=== PATIENT | male | born 1960 | race Caucasian/White ===

== ENCOUNTER → 2022-08-26 | Day surgery (SDC) | payer MEDICARE, MEDICAID ==
[~2022-08-26] VITALS: Ht 188 cm; Wt 149.7 kg
[~2022-08-26] MED LIST: ALLO100T PO; APIX5TAB PO; ASHW300C2 PO; ASPI-1497 PO; ATOR20TA65 PO; BACITRACIN 15GM TUBE TOP ONE; BRIM10DR18 BOTHEYE; BUPIVACAINE HCL/PF 0.5% (5MG/ML) 10ML ONE; CALC667T6 PO; CARV12.545 PO; CHOL-9 PO; DOXA8TAB81 PO; DULA1.5P SQ; FENTANYL CITRATE/PF 50MCG/ML 2ML VIAL ONE; FINE20TA PO; FURO80TA3 PO; GABA-532 PO; GEMF600T90 PO; GINK120C PO; GLYCOPYRROLATE 0.2 MG/ML 2ML VIAL ONE; HEPARIN 1000 UNITS/ML 10ML ONE; HEPARIN SODIUM 1,000 UNIT/1ML VIAL IV ONE; HYDR-4135 PO; HYDRALAZINE 20MG/ML VIAL IV PRN; LIDOCAINE HCL 1% 10 MG/ML 10ML VIAL ONE; MELA10CA PO; MEPERIDINE HCL/PF 25MG/ML CPJ IV PRN; METH-371 PO; MIDAZOLAM HCL 2 MG/2 ML VIAL ONE; MULT-1274 PO; NIFE90TA60 PO; ONDANSETRON HCL 4MG/2ML INJ IV NR; ONDANSETRON HCL 4MG/2ML INJ ONE; PHENYLEPHRINE HCL 10 MG/ML 1ML (IV VIAL) IV ONE; POLYMYXIN B SULFATE 500000 UNITS/VIAL ONE; POTA8CAP20 PO; PRIM50TA5 PO; PROPOFOL 200MG/20ML VIAL IV ONE; RISP1TAB97 PO; SKIN ADHESIVE 0.7 GM EA TOP ONE; SODIUM CHLORIDE 0.9% 500 ML IV ONE; THROMBIN (BOVINE) 5000 UNITS/VIAL TOP ONE; TRAZ-252 PO; ZINC50TA71 PO
[2022-08-26 06:21] LABS: BASOPHILS % 1.2 % (0.0-2.0); EOSINOPHILS % 2.5 % (0.0-5.0); HEMATOCRIT. 36.4 % (42.0-52.0); HEMOGLOBIN. 12.2 g/dL (14.0-18.0); MEAN CORPUSCULAR HEMOGLOBIN 31.7 pg (28.0-32.0); MEAN CORPUSCULAR VOLUME 94.4 fL (80.0-94.0); MEAN PLATELET VOLUME 8.4 fl (7.4-10.4); NEUTROPHILS % 60.3 % (40.0-76.0); PLATELET 199 x1000/uL (130-400); RED BLOOD CELL COUNT 3.85 mill/uL (4.7-6.1); RED CELL DISTRIBUTION WIDTH 14.7 % (11.6-14.6)
[2022-08-26 08:08] LABS: INR 1.1; PARTIAL THROMBOPLASTIN TIME 26.2 sec (23.4-31.0); PROTHROMBIN TIME 11.4 sec (9.6-11.0)
== END | disposition home or self-care (01) ==
LOC: OR 05:18
PROVIDERS: ATTEND Surgery Vascular Surgery
DX: I13.2 Hypertensive heart and chronic kidney disease with heart failure and with stage 5 chronic kidney disease, or end stage renal disease (principal); I50.9 Heart failure, unspecified; N18.6 End stage renal disease; E11.22 Type 2 diabetes mellitus with diabetic chronic kidney disease; J44.9 Chronic obstructive pulmonary disease, unspecified; I48.91 Unspecified atrial fibrillation; F41.9 Anxiety disorder, unspecified; Z79.84 Long term (current) use of oral hypoglycemic drugs; Z79.82 Long term (current) use of aspirin; Z79.899 Other long term (current) drug therapy; Z98.890 Other specified postprocedural states; Z20.822 Contact with and (suspected) exposure to COVID-19
CPT/HCPCS: 36415; 36821; 80048; 82962; 85025; 85610; 85730; 87426; 93005; C1884; C9803; J1644; J2250; J2370; J2405; J2704; J3010; J3490; J7030

== ENCOUNTER → 2023-07-11 | Day surgery (SDC) | payer MEDICARE, MEDICAID ==
[~2023-07-11] VITALS: Ht 188 cm; Wt 114.3 kg
[~2023-07-11] MED LIST changes: -ALLO100T PO; +AMLO5TAB88 PO; -APIX5TAB PO; -ASHW300C2 PO; -ASPI-1497 PO; -CALC667T6 PO; -CARV12.545 PO; +CEFAZOLIN SODIUM 1000MG/VIAL ONE; -CHOL-9 PO; +DEXAMETHASONE 4MG/ML 1ML VIAL ONE; +DEXT15LI PO; -DOXA8TAB81 PO; +DULA0.75 SQ; -DULA1.5P SQ; +FURO20TA4 PO; -FURO80TA3 PO; +GABA-529 PO; -GABA-532 PO; -GINK120C PO; -GLYCOPYRROLATE 0.2 MG/ML 2ML VIAL ONE; -HEPARIN 1000 UNITS/ML 10ML ONE; +HYDR-4001 PO; -HYDR-4135 PO; -HYDRALAZINE 20MG/ML VIAL IV PRN; +HYDROMORPHONE HCL/PF 2MG/ML CPJ IV PRN; +INSU100V43 SQ; +LABETALOL 5MG/ML SYR 20 MG/4 ML SYRINGE IV PRN; -MELA10CA PO; -METH-371 PO; -MULT-1274 PO; +NALO0.4S IM; +NEPVIT PO; -NIFE90TA60 PO; -ONDANSETRON HCL 4MG/2ML INJ IV NR; +ONDANSETRON HCL 4MG/2ML INJ IV PRN; -PHENYLEPHRINE HCL 10 MG/ML 1ML (IV VIAL) IV ONE; +POLY17PO3 PO; -POTA8CAP20 PO; +PROSTAT SUGARFREE PO; +SENN1TAB35 PO; +SEVE800T8 PO; -SKIN ADHESIVE 0.7 GM EA TOP ONE; +SODIUM CHLORIDE 0.9% 500 ML IV NR; -SODIUM CHLORIDE 0.9% 500 ML IV ONE; -ZINC50TA71 PO
[2023-07-11 06:50] LABS: HEMATOCRIT. 36.6 % (42.0-52.0); HEMOGLOBIN. 11.9 g/dL (14.0-18.0); MEAN CORPUSCULAR HEMOGLOBIN 30.4 pg (28.0-32.0); MEAN CORPUSCULAR HGB CONC 32.6 g/dL (31.0-37.0); MEAN CORPUSCULAR VOLUME 93.3 fL (80.0-94.0); PLATELET 145 x1000/uL (130-400); RED BLOOD CELL COUNT 3.93 mill/uL (4.7-6.1); RED CELL DISTRIBUTION WIDTH 17.5 % (11.6-14.6); WHITE BLOOD COUNT 6.5 x1000/uL (4.5-11.0)
[2023-07-11 06:58] LABS: DIFFERENTIAL COMMENT 1
[2023-07-11 07:02] LABS: POTASSIUM 3.8 mEq/L (3.5-5.1)
[2023-07-11 07:06] LABS: INR 1.1; PARTIAL THROMBOPLASTIN TIME 31.6 sec (23.4-31.0); PROTHROMBIN TIME 11.9 sec (9.6-11.0)
[2023-07-11 07:12] LABS: CALCIUM 9.9 mg/dL (8.5-10.1); CREATININE 3.6 mg/dL (0.6-1.3)
[2023-07-11 10:04] LABS: PLATELET ESTIMATE NORMAL
== END | disposition home or self-care (01) ==
LOC: OR 05:17
PROVIDERS: ATTEND Surgery Vascular Surgery
DX: I13.2 Hypertensive heart and chronic kidney disease with heart failure and with stage 5 chronic kidney disease, or end stage renal disease (principal); I50.9 Heart failure, unspecified; N18.6 End stage renal disease; E11.22 Type 2 diabetes mellitus with diabetic chronic kidney disease; E78.00 Pure hypercholesterolemia, unspecified; N40.0 Benign prostatic hyperplasia without lower urinary tract symptoms; G47.30 Sleep apnea, unspecified; F41.9 Anxiety disorder, unspecified; D64.9 Anemia, unspecified; I48.91 Unspecified atrial fibrillation; J44.9 Chronic obstructive pulmonary disease, unspecified; E03.9 Hypothyroidism, unspecified; M10.9 Gout, unspecified; Z86.73 Personal history of transient ischemic attack (TIA), and cerebral infarction without residual deficits; Z79.4 Long term (current) use of insulin; Z79.899 Other long term (current) drug therapy; Z79.82 Long term (current) use of aspirin; Z98.890 Other specified postprocedural states
CPT/HCPCS: 80048; 82962; 85025; 85610; 85730; 36415; 93005; 36830; J3010; J3490 ×4; J0690; J1100; J1644; J2250; J2405; J2704; A4217; Z7610 ×21; C1768